=== PATIENT | male | born 1945 | race African-American/Black ===

== ENCOUNTER 2017-07-20 06:10 | Day surgery (SDC) | payer OTHER ==
[2017-07-18 12:59] VITALS: BMI 29.0
--- NOTE | 2017-07-19 18:21 | HP ---
History & Physical Update - History History: No Change - Physical Physical: No Change - Assessment Assessment: No Change - Plan Plan: No Change
--- NOTE | 2017-07-19 18:21 | HP ---
- Patient Scheduled date of Surgery: 07/20/17 Scheduled Surgical Procedure: Phacoemulsification and cataract extraction with PCIOL Affected Eye: Left Chief Complaint (Indication for surgery): Decreased vision affecting ADLs - Ocular History Other Eye History: Other (OHTN) Eye Medications: timolol 2/2, vigamox 0/3 Previous Eye Surgery: none - Medical History Illnesses: None Current Medications: Ambulatory Orders NK [No Known Home Medication] 07/18/17 Allergies/Adverse Reactions: Allergies Allergy/AdvReac Type Severity Reaction Status Date / Time No Known Allergies Allergy Verified 07/18/17 12:59 Ocular Examination - Best Corrected Visual Acuity Distance: Right eye: 20/30 Distance: Left eye: 20/200 - External/Slit Lamp Examination Abnormalities: none - Intraocular Pressure Intraocular Pressure - Right eye: 17 Intraocular Pressure-Left eye: 17 - Lens Lens: 2+ NS 2+ cortical 2+ diffuse PSC - Vitreous/Retina Vitreous/Retina: c:D 0.5 m/v wnl , hazy view of periphery - Special Examination M - Right eye: -1.50 M - Left eye: -2.75-1.00 x 075 K - Right eye: 44.25/45.5 x 090 K - Left eye: 43.75/44 x 013 AL - Right eye: 24.18 AL - Left eye: 23.65 IOL bag: +19.5 hoya 251 IOL sulcus: +19.0 hoya 231 IOL AC: +16.5 d MTA4uo - Impression Impression: Cataract Left Eye - Plan Plan: Phacoemulsification and cataract extraction - IOL Left eye Post-hospital care will be provided in office on: 07/21/17
[~2017-07-20 06:10] MED LIST: ACETAMINOPHEN 325 MG TABLET (FP) PO PRN; BSS (NA/CA/MG/K) BALANCED SALT SOLUTION OPHTH SOLN 15 ML BOTTLE OS ONE; CHONDROITIN SU A/HYALUR SOD 1 KIT IO ONE; EPINEPHrine/PF 1 MG/1 ML (1:1,000) AMPULE SQ ONE; LIDOCAINE HCL 1% PRESERVATIVE FREE - 30ML VIAL IO ONE; POVIDONE-IODINE 5% OPHTHALMIC PREP 30 ML SOLUTION OS ONE; TOBRAMYCIN/DEXAMETHASONE OPHTH. OINTMENT 1 TUBE OS ONE
[2017-07-20] MEDS ORDERED: TROPICAMIDE 1% OPHTH SOLN 15 ML BOTTLE ONE (06:27)
[2017-07-20] MEDS ORDERED: PHENYLEPHRINE 2.5% OPHTH SOLN 15 ML BOTTLE ONE (06:27)
[2017-07-20] MEDS ORDERED: DICLOFENAC SODIUM 0.1% OPHTHALMIC 2.5ML BOTTLE ONE (06:27)
[2017-07-20] MEDS ORDERED: CIPROFLOXACIN 0.3% EYE DROPS 5 ML BOTTLE ONE (06:27)
[2017-07-20 06:42] VITALS: TEMP 97.4
[2017-07-20] MEDS: PHENYLEPHRINE 2.5% OPHTH SOLN 15 ML BOTTLE OP SCH ×3 (06:45→07:06)
[2017-07-20] MEDS: CIPROFLOXACIN HCL 0.3% OPHTH 2.5ML BOTTLE OP SCH ×3 (06:45→07:06)
[2017-07-20] MEDS: DICLOFENAC SODIUM 0.1% OPHTHALMIC 2.5ML BOTTLE OP SCH ×3 (06:45→07:06)
[2017-07-20] MEDS: TROPICAMIDE 1% OPHTH SOLN 15 ML BOTTLE OP SCH ×3 (06:45→07:07)
[2017-07-20] MEDS ORDERED: TOBRAMYCIN/DEXAMETHASONE OPHTH. OINTMENT 1 TUBE ONE ×2 (07:22→07:33)
[2017-07-20] MEDS ORDERED: EPINEPHrine/PF 1 MG/1 ML (1:1,000) AMPULE ONE (07:22)
[2017-07-20] MEDS ORDERED: LIDOCAINE HCL 2% JELLY (5 ML/TUBE) ONE (07:22)
[2017-07-20] MEDS ORDERED: LIDOCAINE HCL/PF 1% SDV 5ML VIAL ONE (07:23)
[2017-07-20] MEDS ORDERED: BSS (NA/CA/MG/K) BALANCED SALT SOLUTION OPHTH SOLN 15 ML BOTTLE ONE (07:23)
[2017-07-20] MEDS ORDERED: POVIDONE-IODINE 5% OPHTHALMIC PREP 30 ML SOLUTION ONE (07:23)
[2017-07-20] MEDS ORDERED: LIDOCAINE HCL 2% JELLY (5 ML/TUBE) TP ONE ×2 (07:30→09:03)
[2017-07-20] MEDS ORDERED: MIDAZOLAM HCL 2 MG/2 ML SINGLE DOSE VIAL ONE (09:01)
[2017-07-20] MEDS ORDERED: POVIDONE-IODINE 5% OPHTHALMIC PREP 30 ML SOLUTION OS ONE (09:05)
[2017-07-20] MEDS ORDERED: LIDOCAINE HCL 1% PRESERVATIVE FREE - 30ML VIAL IO ONE (09:12)
[2017-07-20] MEDS ORDERED: BSS (NA/CA/MG/K) BALANCED SALT SOLUTION OPHTH SOLN 15 ML BOTTLE OS ONE (09:12)
[2017-07-20] MEDS ORDERED: CHONDROITIN SU A/HYALUR SOD 1 KIT IO ONE (09:12)
[2017-07-20] MEDS ORDERED: EPINEPHrine/PF 1 MG/1 ML (1:1,000) AMPULE SQ ONE (09:20)
[2017-07-20] MEDS ORDERED: TOBRAMYCIN/DEXAMETHASONE OPHTH. OINTMENT 1 TUBE OS ONE (09:37)
--- NOTE | 2017-07-20 09:43 | OP ---
Ophthalmology Operative Note Pre-Operative Diagnosis: Cataract (Posterior subcapsular) Affected Eye: Left Operation: Phacoemulsification and cataract extraction with PCIOL Findings: cataract, psc, nuclear and cortical Post-Operative Diagnosis: Same as Pre-op Professor Of Historical Theology: None Anesthesiologist: Pilar Dozier Anesthesia: Topical Specimens Removed: none Estimated blood loss: 0 Operative Report Dictated: Yes
--- NOTE | 2017-07-20 10:13 | OP ---
DATE OF OPERATION: PREOPERATIVE DIAGNOSIS: Posterior subcapsular cataract, left eye. POSTOPERATIVE DIAGNOSIS: Combined cataract, left eye. PROCEDURE: Phacoemulsification and cataract extraction with insertion of posterior chamber intraocular lens, left eye. SURGEON: Leeanne Perez MD ENVIRONMENTAL LAW PROFESSOR: None. ANESTHESIA: Topical. ANESTHESIOLOGIST: Dr. Dozier OPERATIVE PROCEDURE: The patient received TetraVisc eye drops and was gently sedated and was prepped and draped in the usual sterile fashion so as to expose only the left eye. local anesthesia using a 50/50 mixture of lidocaine 2% and Marcaine 0.75%. A Van Lint lid block was delivered to the left eye using 4 mL of the mixture in a retrobulbar injection using 4 mL of the mixture. The patient was then prepped and draped in the usual sterile fashion so as to expose only the left eye. Ophthalmic Betadine was instilled into the inferior fornix, and the lashes were taped out of the surgical field. An eyelid speculum was placed into the left eye. A paracentesis was made in inferior clear cornea at the limbus. Then 0.5 mL of nonpreserved lidocaine 1% was injected into the anterior chamber. Viscoelastic material was instilled into the anterior chamber via the paracentesis. A 2.4-mm keratome was then used to create the main incision in temporal clear cornea at the limbus. A continuous curvilinear capsulorrhexis was performed using a cystotome and Utrata forceps. Hyrodissection of the lens cortex was performed using BSS on a cannula until the nucleus was noted to be freely rotating. The phacoemulsification tip was then inserted via the main wound and used to sculpt 2 perpendicular grooves into the lens nucleus. The nucleus was cracked into 4 quadrants using 2 instruments. Each quadrant was lifted out of the capsule into the iris plane and individually phacoemulsified. The remaining cortical material was then aspirated using the irrigation and aspiration port. The capsular bag was inflated using Provisc, and a preloaded Hoya lens model 251, power +19.5 diopter was injected into the capsular bag and centered using a Sinskey hook. The residual viscoelastic material was removed from the anterior chamber using irrigation and aspiration. The wound edges were hydrated using BSS. The wound was tested for leakage and found to be watertight. Therefore, Tobradex ointment was placed in the eye, and a speculum was removed from the eye. A sterile dressing and shield were placed over the eye, and the patient was transferred to the recovery room in stable condition and told to follow up in 1 day. LEEANNE PEREZ M.D. [id number]
[2017-07-20 10:49] VITALS: BP 136/75; PULSE 51
== END 2017-07-20 11:15 | disposition home or self-care (01) ==
LOC: JASU-SURG 06:10
PROVIDERS: ATTEND Ophthalmology
PROC: 08RK3JZ Replacement of Left Lens with Synthetic Substitute, Percutaneous Approach (ICD-10-PCS; principal; 2017-07-20 07:30)
DX: H26.8 Other specified cataract (principal)